=== PATIENT | male | born 1965 | race Caucasian/White ===

== ENCOUNTER → 2022-11-24 | Outpatient (CLI) | payer MEDICAID ==
--- NOTE | 2022-11-24 13:37 | MR ---
EXAMINATION TYPE: MR hip RT wo con DATE OF EXAM: 11/24/2022 COMPARISON: None. HISTORY: Rt hip pain for 2 months after recent fall injury. Primary osteoarthritis. Standard multiplanar, multisequence MRI departmental protocol Multiplanar, multisequence images of the pelvis were acquired without contrast. FINDINGS: Moderate axial joint space loss in both hips is seen. No significant joint effusion seen bi laterally. There is subchondral cystic change involving the superior aspect of the acetabulum extendi ng laterally in both hips. Femoral head shapes are maintained bilaterally. No suspicious increased T2 signal or edema is identified. No serpiginous diminished T1 signal to suggest avascular necrosis. Th ere is increased T2 or fluid signal at level of the greater trochanters bilaterally more prominent on the right consistent with a insertional tendinosis. No suspicious groin adenopathy is seen bilateral ly. There is a small to moderate-sized fat-containing left inguinal hernia. No right groin hernia. Urinary bladder appears within normal limits. Prostate gland is upper limits of normal in size. No rios spicious bowel dilatation. No concerning pelvic fluid collection. IMPRESSION: Moderate to advanced degenerative changes in both hips as detailed above.
== END | disposition home or self-care (01) ==
LOC: RADMRIMAIN 06:48
PROVIDERS: ATTEND Orthopaedic Surgery
DX: M16.0 Bilateral primary osteoarthritis of hip (principal); M87.051 Idiopathic aseptic necrosis of right femur; M87.052 Idiopathic aseptic necrosis of left femur

== ENCOUNTER → 2023-06-25 | Outpatient (CLI) | payer MEDICAID ==
[2023-06-25 11:13] LABS: Partial Thromboplastin Time 24.2 sec (22.0-30.0)
[2023-06-25 16:08] LABS: Prothrombin Time 10.6 sec (10.0-12.5)
[2023-06-25 16:12] LABS: HCT 42.1 % (39.6-50.0); HGB 13.4 g/dL (13.0-17.0); MCH 28.9 pg (27.0-32.0); MCHC 31.8 g/dL (32.0-37.0); MCV 90.7 FL (80.0-97.0); Mean Platelet Volume 9.6 FL (9.5-12.2); NRBC Per 100 WBC 0 X 10*3/uL (0.00-0.01); Platelet Count 256 X 10*3/uL (140-440); RBC 4.64 X 10*6/uL (4.40-5.60); RDW 13.9 % (11.5-14.5)
[2023-06-25 17:08] LABS: ALT 29 U/L (10-49); AST 22 U/L (14-35); Albumin 4.1 g/dL (3.8-4.9); Albumin/Globulin Ratio 1.24 Ratio (1.60-3.17); Alkaline Phosphatase 76 U/L (41-126); BUN/Creat Ratio 18.75 Ratio (12.00-20.00); Calcium 9.1 mg/dL (8.7-10.3); Carbon Dioxide 23.2 mmol/L (21.6-31.8); Chloride 105 mmol/L (96-109); Globulin 3.3 g/dL (1.6-3.3); Glucose 96 mg/dL (70-110); Potassium 4.7 mmol/L (3.5-5.5); Sodium 138 mmol/L (135-145); Total Bilirubin 0.4 mg/dL (0.3-1.2); Total Protein 7.4 g/dL (6.2-8.2)
== END | disposition home or self-care (01) ==
LOC: LABPAT 10:10
PROVIDERS: ATTEND Orthopaedic Surgery
DX: Z01.818 Encounter for other preprocedural examination (principal); I45.10 Unspecified right bundle-branch block; M16.11 Unilateral primary osteoarthritis, right hip
CPT/HCPCS: 80053; 85027; 85610; 85730; 86850; 86900; 86901; 87070; 87086; 93005

== ENCOUNTER 2023-07-06 05:33 | Day surgery (SDC) | payer MEDICAID ==
[2023-07-03 10:14] VITALS: BMI 44.6
[~2023-07-06 05:33] MED LIST: ROPIVACAINE/EPI/CLONIDINE/KET 50 ML SYRINGE MISCELLANE PRN; ceFAZolin 3 GM in SODIUM CHLORIDE 0.9% 100 ML IVPB PRN
[2023-07-06] MEDS ORDERED: ACETAMINOPHEN TAB 500 MG TAB PO PRN (06:00)
[2023-07-06] MEDS ORDERED: DOCUSATE 100 MG CAP PO PRN (06:00)
[2023-07-06] MEDS ORDERED: TRANEXAMIC 1,000 MG/100ML-NACL 1,000 MG in SALINE 1 100ML.BAG IVPB PRN (06:00)
[2023-07-06] MEDS ORDERED: KETOROLAC 15 MG/ML 1 ML VIAL IVP PRN (06:00)
[2023-07-06] MEDS ORDERED: DEXAMETHASONE SOD PHOSPHATE 10 MG/ML 1 ML VIAL IV PRN (06:00)
[2023-07-06] MEDS ORDERED: ONDANSETRON 4 MG/2 ML VIAL IVP PRN ×2 (06:00→09:59)
[2023-07-06] MEDS ORDERED: FAMOTIDINE 20 MG/2 ML VIAL IVP PRN (06:00)
[2023-07-06] MEDS ORDERED: oxyCODONE ER 10 MG TAB.ER.12H PO PRN (06:00)
[2023-07-06] MEDS ORDERED: TRANEXAMIC 1,000 MG/100ML-NACL 1,000 MG in SALINE 1 100ML.BAG IV PRN (06:00)
[2023-07-06] MEDS: LACTATED RINGERS 1,000 ML IV SCH (06:38)
[2023-07-06] MEDS ORDERED: fentaNYL (PF) 50 MCG/ML 2 ML AMP IVP ONE (06:45)
[2023-07-06] MEDS ORDERED: MIDAZOLAM 2 MG/2 ML VIAL IV PRN (07:00)
[2023-07-06] MEDS ORDERED: NEOSTIGMINE 1 MG/ML 10 ML VIAL ONE (07:10)
[2023-07-06] MEDS ORDERED: ROCURONIUM 10 MG/ML (5 ML VIAL) IV ONE (07:10)
[2023-07-06] MEDS ORDERED: LIDOCAINE 1% INJ 10MG/ML (20 ML MDV) ONE (07:10)
[2023-07-06] MEDS ORDERED: GLYCOPYRROLATE 0.2 MG/ML 2 ML VIAL ONE (07:10)
[2023-07-06] MEDS ORDERED: fentaNYL (PF) 50 MCG/ML 2 ML AMP ONE (07:10)
[2023-07-06] MEDS ORDERED: PROPOFOL 10 MG/ML 20 ML VIAL IV ONE (07:10)
[2023-07-06] MEDS ORDERED: SUCCINYLCHOLINE CHLORIDE 200 MG/10 ML VIAL IV ONE (07:10)
[2023-07-06] MEDS ORDERED: ROPIVACAINE 5 MG/ML 30 ML VIAL ONE (07:10)
[2023-07-06] MEDS ORDERED: LACTATED RINGERS 1,000 ML IV ONE (09:32)
--- NOTE | 2023-07-06 09:57 | P.ANPRN ---
Procedure Note - Anesthesia - Nerve Block Performed Right José Miguel Single Time Out Performed: Yes ([id number]) Date of Procedure: 07/06/23 Procedure Start Time: 06:45 Procedure Stop Time: 06:50 Location of Patient: PreOp Indication: Acute Post-Operative Pain, Requested by Surgeon Specifically requested for management of pain by DrAzar: Valeriy Roth Sedation Type: Sedate with meaningful contact maintained Preparation: Sterile Prep Position: Supine Catheter: None Needle Gauge: 21 Ultrasound used to visualize needle placement: Yes Ultrasound used to observe medication spread: Yes Injectate: 0.5% Ropivacaine (see comment for volume) (30cc) Blood Aspirated: No Pain Paresthesia on Injection Noted: No Resistance on Injection: Normal Image Stored and Saved: Yes Events: Uneventful and Well Tolerated
[2023-07-06] MEDS ORDERED: diazePAM 5 MG TAB PO PRN (09:59)
[2023-07-06] MEDS ORDERED: HYDROmorphone 1 MG/ML 1 ML SYRINGE IVP PRN (09:59)
[2023-07-06] MEDS ORDERED: HYDROcodone/APAP 5-325MG 1 EACH TAB PO PRN (09:59)
[2023-07-06] MEDS ORDERED: MAGNESIUM HYDROXIDE 2,400 MG/30 ML CUP PO PRN (09:59)
[2023-07-06] MEDS ORDERED: NALOXONE 0.4 MG/ML 1 ML VIAL IV PRN (09:59)
[2023-07-06] MEDS ORDERED: hydrOXYzine pamoate 25 MG CAP PO PRN (09:59)
[2023-07-06] MEDS ORDERED: HYDROmorphone 0.5 MG/0.5 ML SYRINGE IVP PRN (09:59)
--- NOTE | 2023-07-06 09:59 | P.OP ---
Date of Procedure: 07/06/23 Preoperative Diagnosis: 1. Severe right hip osteoarthritis 2. BMI 45.3 3. Chronic back issues Postoperative Diagnosis: Same Procedure(s) Performed: Right direct anterior total hip arthroplasty Implants: 1. [place] Trident II Acetabular Cup, Size #54 2. [place] Insignia Size # 5 Femoral Stem, High Offset 3. Biolox delta femoral head, 36 mm, - 5 mm neck Anesthesia: KIERRA, regional Surgeon: Valeriy Roth Extension Professor #1: Erika Arcos Estimated Blood Loss (ml): 200 IV fluids (ml): 1,200 Pathology: none sent Condition: stable Disposition: PACU Indications for Procedure: The patient is very pleasant 58-year-old to while been seeing in the office for right-sided hip pain. He also has had a long-standing history of lumbar spine issues that have caused issues with his legs. Clinically on exam he had significant pain with passive range of motion of the hip consistent with arthritic changes in the hip. His x-rays were somewhat difficult to interpret as due to his body habitus but did show some arthritic changes. An MRI was obtained to confirm the degree of arthritis in his hip. His MRI showed moderate to severe right hip osteoarthritis. We discussed continued treatment options given the severity of his pain. He failed over 6 months of nonsurgical treatment and requested proceeding with surgery. Given his x-ray findings and lumbar spine issues we discussed a diagnostic hip injection versus proceeding with a total hip replacement. Given his physical exam with significant pain with passive range of motion of the hip and his MRI showing moderate to severe arthritis of the right hip we both felt that his hip was a significant source of his pain. We agreed to proceed with a total hip arthroplasty. The patient understands the possibility of continued symptoms given his lumbar spine issues. I had a long discussion with the patient in the office on the potential risks and complications of an elective total hip replacement through a direct anterior approach. Risks discussed include, but are certainly not limited to, risks from anesthesia, superficial infection requiring local wound care or antibiotics, deep usman-prosthetic joint infection and the treatment required to eradicate infection, intraoperative fracture, postoperative periprosthetic fracture, damage to local blood vessels or nerves particularly the lateral femoral cutaneous nerve, delayed wound healing requiring local wound care or possibly surgical debridement, hip dislocation, leg length discrepancy, soft tissue irritation around the total hip implant such as iliopsoas tendinitis or trochanteric bursitis, wear and osteolysis from the implants, squeaking or audible noises, groin pain, thigh pain, heterotopic ossification, stiffness, aseptic loosening of the implants, dissatisfaction with surgical outcome, need for revision surgery, DVT, PE, swelling of the operative extremity, acute coronary event, stroke, failure to thrive, and possibly loss of life or limb. The patient understands that while these are the most common complications after an elective hip replacement there are certainly other less common complications possible. They were given ample time to ask questions regarding the potential complications of a hip replacement. Following our discussion the patient provided their verbal and written consent to go forward with an elective total hip replacement. Operative Findings: Severe arthritic changes in the right hip with full-thickness cartilage loss on the femoral head and acetabulum Description of Procedure: The patient was identified in the preoperative holding area and the correct hip was marked with my initials. I reviewed the procedure and consent with the patient. All of their questions were answered. The patient was then brought back into the operating room by anesthesia. While on the [facility] anesthesia was administered by the anesthesia team. Preoperative antibiotics and tranexamic acid were also given. After the patient was under anesthesia I examined their ankles to determine their preoperative leg length discrepancy. The skin over the anterior aspect of the hip was shaved to remove hair over the site of planned incision. Both feet and ankles were padded with webril and boots for the Henderson were applied. The patient was then carefully transferred onto the Henderson table. A perineal post was immediately placed. The arms were placed on arm holders and were well-padded. Both boots were secured to the spars on the Henderson table. The patient was positioned so that the pelvis was centered over the post. Nonsterile drapes were applied. A timeout was performed identifying the correct patient, operative extremity, and procedure. At this point fluoroscopy was brought in to take preoperative images of the pelvis and operative hip. Using the standing AP pelvis from the office as a template, a comparable image was obtained with fluoroscopy. A metallic bar was used to create a bi-ischial line for use as a reference to leg length adjustments during the procedure. Global offset was also measured on both the operative and nonoperative leg. Fluoroscopy was then brought out and a pre-scrub using a chlorhexidine scrub brush was performed. The operative limb was then prepped and draped in the standard sterile fashion. An anterior longitudinal incision was made lateral and distal to the ASIS. The skin and subcutaneous tissues were incised sharply. The underlying tensor fascia was identified and incised in its midportion. The fascia was dissected free from the underlying muscle and the muscle belly was retracted. A blunt tipped cobra retractor was placed over the superior neck under the muscle fibers of the gluteus minimus. The deep enveloping fascia of the tensor was incised. The anterior leash of vessels were then identified and cauterized. The fascia between the rectus and the capsule was then incised and the pre-capsular fat was excised. A second Cobra was placed inferior to the neck. The interval between the rectus and iliocapsularis and the hip capsule was developed and a retractor was placed carefully over the anterior rim of the acetabulum. A T-shaped ante rior capsulotomy was performed. The superior capsular leaflet was left in place in the inferior capsular flap was excised. The Cobra retractors were placed intracapsularly. We then made a femoral neck osteotomy according to preoperative and intraoperative templating and confirmed the level of the osteotomy using fluoroscopic imaging. The femoral head was removed, passed off to the back table, and sized. The superior capsular flap was excised. Retractors were placed circumferentially exposing the acetabulum. We then circumferentially debrided the acetabulum free of labrum and osteophytes. The pulvinar was removed to fully visualize the cotyloid fossa. We then sequentially reamed to achieve peripheral fit and excellent bleeding subchondral bone. The socket was thoroughly irrigated. The acetabular component was impacted into the appropriate position using fluoroscopy to guide version, inclination, and depth of insertion taking care to have a comparable image of the AP pelvis to the standing image taken in the office. An excellent press-fit was achieved and final position was confirmed using fluoroscopy. The press fit was augmented with bony cancellus dome screws. The liner was then impacted into the socket. Attention was then turned to the femur. The remnant dorsal lateral capsule was excised. The short external rotators were visible and protected. A bone hook was used to confirm appropriate translation of the trochanter away from the acetabulum. The leg was then extended and adducted and the bone hook was used to elevate the femur for broaching. A box osteotome and blunt tipped canal sound was then utilized to gain access to the femoral canal. We then sequentially broached the femur in appropriate anteversion until excellent torsional stability was achieved. The neck cut was brought flush to the trial broach with a calcar planar. A trial neck and head were then placed onto the broach and the hip was atraumatically reduced under direct visualization. External rotation to 90 was performed to assess stability. Fluoroscopy was brought in. An AP and lateral fluoroscopic image of the proximal femur was obtained to assess position and fill of the trial broach. An AP of the pelvis was then obtained and matched to the preoperative image taken. A bi-ischial bar was then placed and measurements were taken to assess changes in length and offset. The hip was then carefully dislocated, the proximal femur was exposed, and the trial implants were removed. The wound and proximal femur was thoroughly irrigated using sterile saline and pulsatile lavage. The final femoral implant was dispensed and gently tapped into place generating an excellent press-fit. The trunnion was cleansed and the final head was tapped into place to engage the Rivas taper. The acetabulum was irrigated and visualized to be free of debris. The hip was carefully reduced. Stability was checked clinically with external rotation to 90 and there was no evidence of instability. Final fluoroscopic images were taken. The wound was then thoroughly irrigated and soaked with a dilute Betadine rinse for 3 minutes. 3 L of sterile saline was irrigated through the wound using pulsatile lavage. Local anesthetic cocktail was injected into the soft tissues around the surgical field. The wound was then closed in layers. A sterile dressing was placed over the surgical incision. The drapes were taken down and the patient was carefully transferred off of the Henderson table. Following removal of the boots the leg lengths felt acceptable. The patient was then taken to recovery room having tolerated the procedure well. Erika Arcos DO was required as a skilled medical technician assistant due to the complexity of the case for patient positioning, exposure, retraction, placement of implants, and closure of wound. PLAN: The patient can weight-bear as tolerated on the operative extremity. DVT prophylaxis with aspirin 81 mg twice a day based on preoperative risk stratification. Physical therapy for gait training.
--- NOTE | 2023-07-06 10:44 | FL ---
Intraoperative/procedural fluoroscopic services were provided. Total fluoroscopy time is 46 seconds w ith a total of 7 submitted images to PACS. Please see the operative/procedural note for further detai ls. DAP: 6.5 Gycm2
[2023-07-06] MEDS: SODIUM CHLORIDE 0.9% 1,000 ML IV SCH ×2 (11:40→20:25)
[2023-07-06 14:15] VITALS: RESP 18
[2023-07-06] MEDS: ceFAZolin 3 GM in SODIUM CHLORIDE 0.9% 100 ML IVPB SCH ×2 (15:09→22:49)
--- NOTE | 2023-07-06 17:18 | P.CONS ---
History of Present Illness - Reason for Consult Consult date: 07/06/23 - Chief Complaint Medical management - History of Present Illness 58-year-old man with medical history of hip osteoarthritis, obesity class III presented for elective total hip arthroplasty. Medicine was consulted for medical management. Patient's only complaint is right hip soreness, otherwise no complaints at this time. Patient denies fevers, chills, nausea, vomiting, chest pain, palpitations, sick, presyncope, cough, dyspnea, abdominal pain, constipation, diarrhea, dysuria, dyschezia, numbness/weakness of extremities. Patient was afebrile, hemodynamically stable. No lab work to review. All Systems reviewed and pertinent positives and negatives noted in HPI, all other symptoms are negative Gen: in no apparent distress, resting comfortably in bed Eyes: PERRL, no scleral injection or icterus HENT: normocephalic, atraumatic, good hearing acuity, moist mucous membranes Neck: no tracheal deviation, full range of motion Resp: good air exchange, breathing comfortably with no accessory muscle use, no tactile fremitus CVS: good distal perfusion x 4, no pitting edema GI: soft, NTTP, ND, no hepatosplenomegaly : no suprapubic tenderness, no CVAT, mcgrath catheter not present MSK: no clubbing, no cyanosis, no noted contractures of extremities Skin: no noted rashes, petechiae; temperature of skin is appropriate Neuro: moving all extremities without signs of weakness, CN II-XII intact Psych: cooperative, euthymic mood, insight and judgment intact Assessment/plan: Obesity, class III -Recommend outpatient weight loss via diet and exercise Status post hip arthroplasty -Pain control, DVT prophylaxis per primary team -Order CBC tomorrow to ensure no need for 30 days of iron therapy Patient is full code Past Medical History Past Medical History: Osteoarthritis (OA) History of Any Multi-Drug Resistant Organisms: None Reported Past Surgical History: Appendectomy Additional Past Surgical History / Comment(s): COLONOSCOPY, STEEL REMOVED FROM LEG YEARS AGO-RIGHT? EPIDURAL INJECTIONS IN BACK Past Anesthesia/Blood Transfusion Reactions: No Reported Reaction Past Psychological History: No Psychological Hx Reported Smoking Status: Never smoker Past Alcohol Use History: None Reported Past Drug Use History: None Reported - Past Family History Father Family Medical History: Cancer Mother Family Medical History: Cancer Daughter(s) Family Medical History: Cancer Medications and Allergies Home Medications Medication Instructions Recorded Confirmed Type Acetaminophen [Tylenol Extra 1,000 mg PO Q8HR PRN 07/03/23 07/06/23 History Strength] Allergies Allergy/AdvReac Type Severity Reaction Status Date / Time acetaminophen Allergy Rash/Hives Verified 07/06/23 05:50 [From Tylenol-Codeine #3] codeine Allergy Rash/Hives Verified 07/06/23 05:50 [From Tylenol-Codeine #3] Physical Exam Osteopathic Statement: *. No significant issues noted on an osteopathic structural exam other than those noted in the History and Physical/Consult. Vitals: Vital Signs Temp Pulse Pulse Resp BP Pulse Ox 07/06/23 13:55 97.7 F 82 18 126/70 95 07/06/23 11:45 86 16 120/59 93 L 07/06/23 11:30 87 16 115/59 94 L 07/06/23 11:15 84 16 118/61 94 L 07/06/23 11:00 83 16 123/63 95 07/06/23 10:45 81 16 118/62 95 07/06/23 10:33 87 16 113/61 98 07/06/23 10:18 83 16 125/59 97 07/06/23 10:03 74 16 125/58 95 07/06/23 09:48 98.7 F 82 16 144/65 97 07/06/23 06:59 65 16 114/60 98 07/06/23 06:15 98.1 F 72 140/71 96 Intake and Output 07/06/23 07/06/23 07/06/23 06:59 14:59 22:59 Intake Total 500 700 Output Total 100 Balance 500 600 Intake: IV 500 700 Output: Estimated Blood Loss 100 Other: # Voids 1 Weight 131.2 kg 131.2 kg
[2023-07-06] MEDS: ASPIRIN 81 MG PO SCH (20:24)
[2023-07-06] MEDS ORDERED: SENNOSIDES-DOCUSATE SODIUM 1 EACH TAB PO SCH (21:00)
[2023-07-06] MEDS: HYDROcodone/APAP 10-325MG 1 EACH TAB PO PRN (22:49)
[2023-07-07] MEDS: HYDROcodone/APAP 10-325MG 1 EACH TAB PO PRN ×2 (04:51→10:41)
[2023-07-07] MEDS: LACTATED RINGERS 1,000 ML IV SCH (04:54)
[2023-07-07] MEDS: SODIUM CHLORIDE 0.9% 1,000 ML IV SCH (06:36)
[2023-07-07 07:51] LABS: Basophils % (A) 0 %; Eosinophils % (A) 0 %; HCT 34.6 % (39.0-53.0); HGB 11.2 gm/dL (13.0-17.5); Lymphocytes # (A) 1.7 k/uL (1.0-4.8); Lymphocytes % (A) 9 %; MCH 29.7 pg (25.0-35.0); MCHC 32.4 g/dL (31.0-37.0); MCV 91.7 fL (80.0-100.0); Mean Platelet Volume 7.4; Monocytes % (A) 6 %; Neutrophils # (A) 15.2 k/uL (1.3-7.7); Neutrophils % (A) 83 %; Platelet Count 231 k/uL (150-450); RBC 3.78 m/uL (4.30-5.90); RDW 13.9 % (11.5-15.5); WBC 18.4 k/uL (3.8-10.6)
[2023-07-07] MEDS: ASPIRIN 81 MG PO SCH (07:52)
[2023-07-07 08:19] VITALS: BP 126/67; PULSE 84; TEMP 98.1
--- NOTE | 2023-07-07 08:22 | P.DS ---
Providers Date of admission: 07/06/2023 Attending physician: Valeriy Roth Consults: 07/06/23 09:59 Consult Physician Routine Consulting Provider: Nanci Hoover Consult Reason/Comments: post op medical management Do you want consulting provider notified?: Yes Primary care physician: Delfina Godfrey MD Hospital Course: The patient is a very pleasant 58-year-old male with long-standing history of right hip pain secondary to arthritis. He is admitted under my care yesterday and underwent an uncomplicated total hip replacement. Following surgery he was transferred to the orthopedics floor. He received 2 doses of postoperative antibiotics. He was transitioned from IV to oral pain medication. He was evaluated by internal medicine. He worked with physical therapy and did well. He was ultimately cleared for discharge home. Plan - Discharge Summary Discharge Rx Participant: No New Discharge Prescriptions: New HYDROcodone/APAP 5-325MG [[place] 5-325] 1 - 2 tab PO Q6HR PRN #32 tab PRN Reason: Pain Aspirin 81 mg PO BID #60 tab Docusate [Colace] 100 mg PO BID #30 capsule Omeprazole 40 mg PO DAILY #30 cap Doxycycline Monohydrate 100 mg PO BID #28 cap hydrOXYzine pamoate [Vistaril] 25 mg PO Q8HR #20 capsule Diclofenac Sodium [Voltaren] 75 mg PO BID #60 tab No Action Acetaminophen [Tylenol Extra Strength] 1,000 mg PO Q8HR PRN PRN Reason: Pain Discharge Medication List Acetaminophen [Tylenol Extra Strength] 1,000 mg PO Q8HR PRN 07/03/23 [History] Aspirin 81 mg PO BID #60 tab 07/07/23 [Rx] Diclofenac Sodium [Voltaren] 75 mg PO BID #60 tab 07/07/23 [Rx] Docusate [Colace] 100 mg PO BID #30 capsule 07/07/23 [Rx] Doxycycline Monohydrate 100 mg PO BID #28 cap 07/07/23 [Rx] HYDROcodone/APAP 5-325MG [[place] 5-325] 1 - 2 tab PO Q6HR PRN #32 tab 07/07/23 [Rx] Omeprazole 40 mg PO DAILY #30 cap 07/07/23 [Rx] hydrOXYzine pamoate [Vistaril] 25 mg PO Q8HR #20 capsule 07/07/23 [Rx] Follow up Appointment(s)/Referral(s): Valeriy Roth MD [Medical Doctor] - 2 Weeks Activity/Diet/Wound Care/Special Instructions: 1. Weight-bear as tolerated on your operative extremity unless instructed otherwise. Use a walker or other assistive device to ambulate. 2. Leave surgical dressing in place. If your dressing becomes saturated with blood, there is drainage, or the dressing becomes loose please contact the office. 3. It is okay to shower with your surgical dressing, but do not submerge in water (no hot tubs, bath's, swimming etc.) 4. Make sure to take her blood clot prevention medication as prescribed (aspirin, Eliquis, Xarelto, and Plavix are commonly prescribed medications for blood clot prevention) 5. While taking [place] or Percocet for pain make sure you're taking a stool softener (Colace) and drink lots of water. 6. Keep all follow-up appointments as scheduled. You will usually be seen in 1-2 weeks following surgery. 7. Please contact the office with any questions or concerns [phone] Discharge Disposition: HOME SELF-CARE
--- NOTE | 2023-07-07 14:51 | P.PN ---
Subjective Progress Note Date: 07/07/23 No new complaints. Medically cleared for discharge. Gen: in no apparent distress, resting comfortably in bed Eyes: PERRL, no scleral injection or icterus HENT: normocephalic, atraumatic, good hearing acuity, moist mucous membranes Neck: no tracheal deviation, full range of motion Resp: good air exchange, breathing comfortably with no accessory muscle use, no tactile fremitus CVS: good distal perfusion x 4, no pitting edema GI: soft, NTTP, ND, no hepatosplenomegaly : no suprapubic tenderness, no CVAT, mcgrath catheter not present MSK: no clubbing, no cyanosis, no noted contractures of extremities Skin: no noted rashes, petechiae; temperature of skin is appropriate Neuro: moving all extremities without signs of weakness, CN II-XII intact Psych: cooperative, euthymic mood, insight and judgment intact Assessment/plan: Obesity, class III -Recommend outpatient weight loss via diet and exercise Status post hip arthroplasty -Pain control, DVT prophylaxis per primary team Patient is full code Objective - Vital Signs Vital signs: Vital Signs Temp 98.1 F 07/07/23 08:00 Pulse 84 07/07/23 08:00 Resp 18 07/07/23 08:00 BP 126/67 07/07/23 08:00 Pulse Ox 96 07/07/23 08:00 FiO2 Intake & Output 07/06/23 07/07/23 07/07/23 18:59 06:59 18:59 Intake Total 700 Output Total 100 Balance 600 Weight 131.2 kg Intake: IV 700 Output: Estimated Blood Loss 100 Other: # Voids 1 3 - Labs CBC & Chem 7: 07/07/23 07:27 Labs: Abnormal Lab Results - Last 24 Hours (Table) 07/07/23 Range/Units 07:27 WBC 18.4 H (3.8-10.6) k/uL RBC 3.78 L (4.30-5.90) m/uL Hgb 11.2 L (13.0-17.5) gm/dL Hct 34.6 L (39.0-53.0) % Neutrophils # 15.2 H (1.3-7.7) k/uL
== END 2023-07-07 11:14 | disposition home or self-care (01) ==
LOC: OR 05:33 → 4SSUR 11:52 → OR 07-07 11:14
PROVIDERS: ATTEND Orthopaedic Surgery
DX: M16.11 Unilateral primary osteoarthritis, right hip (principal); G89.18 Other acute postprocedural pain; Z88.5 Allergy status to narcotic agent; Z88.6 Allergy status to analgesic agent; Z83.3 Family history of diabetes mellitus; Z79.899 Other long term (current) drug therapy
CPT/HCPCS: 97116; 97110; 97161; 64447; 85025; 73502; 27130; C1776; J2250; J1100; J0690; J2405; J3010; J3490; J1170 ×2; J1885